=== PATIENT | female | born 1985 | race Caucasian/White ===

== ENCOUNTER 2016-07-24 09:11 | Outpatient (CLI) | payer OTHER | END 2016-07-24 09:12 | disposition home or self-care (01) | DX: Z36 Encounter for antenatal screening of mother (principal) ==

== ENCOUNTER 2016-08-16 13:27 | Outpatient (CLI) | payer OTHER | END 2016-08-16 13:28 | disposition home or self-care (01) | DX: O40.3XX0 Polyhydramnios, third trimester, not applicable or unspecified (principal) ==

== ENCOUNTER 2016-08-22 10:05 | Outpatient (CLI) | payer OTHER | END 2016-08-22 12:25 | disposition home or self-care (01) | DX: O24.419 Gestational diabetes mellitus in pregnancy, unspecified control (principal); Z3A.34 34 weeks gestation of pregnancy; O40.3XX0 Polyhydramnios, third trimester, not applicable or unspecified ==

== ENCOUNTER 2016-08-22 12:30 | Outpatient (CLI) | payer OTHER | END 2016-08-22 12:31 | disposition home or self-care (01) | DX: O40.3XX0 Polyhydramnios, third trimester, not applicable or unspecified (principal) ==

== ENCOUNTER 2016-08-30 20:08 | Outpatient (CLI) | payer OTHER | END 2016-08-30 20:09 | disposition home or self-care (01) | DX: Z36 Encounter for antenatal screening of mother (principal) ==

== ENCOUNTER 2016-08-31 14:10 | Outpatient (CLI) | payer OTHER ==
[2016-08-31 14:20] VITALS: BP 124/65
== END 2016-08-31 14:45 | disposition home or self-care (01) ==
LOC: WFO 14:10 → OB 14:12 → WFO 14:45
PROVIDERS: ATTEND Obstetrics & Gynecology
DX: O24.419 Gestational diabetes mellitus in pregnancy, unspecified control (principal); Z3A.35 35 weeks gestation of pregnancy; O40.3XX0 Polyhydramnios, third trimester, not applicable or unspecified
CPT/HCPCS: 59025

== ENCOUNTER 2016-09-11 11:45 | Outpatient (CLI) | payer OTHER ==
[2016-09-11 12:22] VITALS: BP 116/73
--- NOTE | 2016-09-11 16:56 | Ultrasound Report ---
BIOPHYSICAL PROFILE: 09/11/2016 CLINICAL INDICATION: Decreased movement. TECHNIQUE: Real-time scanning was performed with patient access representative static images obtained. FINDINGS: The fetus receives 2 points for tone, 2 points for movement, 2 points for feta l respiration, and 2 points for amniotic fluid, yielding a biophysical profile of 8 out of 8. heart rate is 132 BPM. Amniotic fluid volume has decreased, with an LYN of 26.1, within normal limits. IMPRESSION: SINGLE VIABLE INTRAUTERINE GESTATION; 8 OUT OF 8 BIOPHYSICAL PROFILE. JOB #: [id number] EXT JOB #:[id number]
== END 2016-09-11 14:40 | disposition home or self-care (01) ==
LOC: WFO 11:45 → OB 11:47 → WFO 14:40
PROVIDERS: ATTEND Obstetrics & Gynecology
DX: O36.8130 Decreased fetal movements, third trimester, not applicable or unspecified (principal); Z3A.37 37 weeks gestation of pregnancy
CPT/HCPCS: 59025; 76819

== ENCOUNTER 2016-09-14 12:17 | Outpatient (CLI) | payer OTHER ==
[2016-09-14 12:45] VITALS: BP 128/64
== END 2016-09-14 12:52 | disposition home or self-care (01) ==
LOC: WFO 12:17 → OB 12:19 → WFO 12:52
PROVIDERS: ATTEND Obstetrics & Gynecology
DX: O40.3XX0 Polyhydramnios, third trimester, not applicable or unspecified (principal); Z3A.37 37 weeks gestation of pregnancy
CPT/HCPCS: 59025

== ENCOUNTER 2016-09-17 15:47 | Outpatient (CLI) | payer OTHER | END 2016-09-17 15:48 | disposition critical access hospital (66) | LOC: EMS 15:47 | PROVIDERS: ATTEND Surgery | DX: O60.00 Preterm labor without delivery, unspecified trimester (principal) | CPT/HCPCS: A0425; A0429 ==

== ENCOUNTER 2016-09-17 16:23 | Inpatient (IN) | payer OTHER ==
[2016-09-17 16:48] LABS: BASOPHILS % (AUTO) 0.3 %; EOSINOPHILS # (AUTO) 0.1 10^3/uL (0.0-0.7); EOSINOPHILS % (AUTO) 1.2 %; HCT - HEMATOCRIT 30.9 % (37.0-47.0); HGB - HEMOGLOBIN 10.4 g/dL (12.0-16.0); LYMPHOCYTES # (AUTO) 2.1 10^3/uL (1.5-3.5); LYMPHOCYTES % (AUTO) 22.2 %; MEAN CORPUSCULAR HGB CONC 33.7 g/dL (32.0-36.0); MEAN CORPUSCULAR VOLUME 80.1 fL (81.0-99.0); MEAN PLATELET VOLUME 9.3 fL (7.9-10.8); MONOCYTES # (AUTO) 0.6 10^3/uL (0.0-1.0); MONOCYTES % (AUTO) 6.2 %; NEUTROPHILS # (AUTO) 6.6 10^3/uL (1.5-6.6); NEUTROPHILS % (AUTO) 70.1 %; RED BLOOD COUNT 3.85 10^6/uL (4.20-5.40); RED CELL DISTRIBUTION WIDTH 13.3 % (12.0-15.0); UNCORRECTED WHITE BLOOD COUNT 9.4 x10^3/uL; WHITE BLOOD COUNT 9.4 x10^3/uL (4.8-10.8)
[2016-09-17] MEDS ORDERED: LACTATED RINGERS 1,000 ML IV ONE (16:48)
[2016-09-17] MEDS ORDERED: ONDANSETRON 4 MG/2 ML VIAL IVP PRN (17:06)
[2016-09-17] MEDS ORDERED: fentaNYL 100 MCG/2 ML VIAL IVP PRN (17:06)
[2016-09-17] MEDS ORDERED: SODIUM CHLORIDE FLUSH 0.9% 10 ML SYRINGE IVP PRN (17:06)
[2016-09-17] MEDS ORDERED: ACETAMINOPHEN 325 MG TABLET PO SCH (18:00)
--- NOTE | 2016-09-17 20:02 | HISTORY & PHYSICAL EXAMINATION ---
DATE OF ADMISSION: 09/17/2016 DATE OF ADMISSION/SURGERY: 09/17/2016 IDENTIFICATION: This is a 31-year-old 4, para 3-0-0-3 with a 38-2/7 week intrauterine . EDC is 09/29/2016 consistent with a 13-week ultrasound. HISTORY OF PRESENT ILLNESS: This is a patient of [facility]. She was initially a transfer of care from [facility]. Her has been complicated with gestational diabetes mellitus as well as borderline polyhydramnios diagnosed at 32 weeks' gestation. The patient's sugars have been pretty much in control with fastings in the 70s and 80s, and postprandials to the 80s and 110s. The patient was diagnosed with polyhydramnios at about 33 weeks' gestation secondary to size greater than dates. A 08/16/2016 ultrasound showed the baby was measuring 2479 grams at the 55th percentile. LYN was 30.1 cm. Repeat ultrasound on 08/30/2016 showed that the LYN had decreased to 23.6 cm. More recently the patient stated that she had a spontaneous rupture of membranes at 1515 today. It was an obvious rupture of membranes. The patient presented here in the emergency department via an ambulance because she had a precipitous delivery in less than an hour with last child, Jaime, her son. The patient states that the baby is moving well. Denies any vaginal bleeding. She is having some spontaneous contractions approximately every 3-4 minutes. The heart rate currently is reactive and category 1 with the baseline in the 130s. There are no decelerations. The patient was scheduled for induction of labor at 39 weeks secondary to polyhydramnios as well as gestational diabetes mellitus. PAST MEDICAL HISTORY: 1. Obesity. 2. Quiescent multiple sclerosis. 3. Migraine headaches. 4. History of frequent urinary tract infections. PAST SURGICAL HISTORY: 1. [place] teeth extraction. 2. 2003 cryotherapy. ALLERGIES: NO KNOWN DRUG ALLERGIES. MEDICATIONS: vitamins. SOCIAL HISTORY: The patient is to Antonio and they have a son, Favian, daughter Xin, and son, Jaime. This is anticipated male fetus. Antonio is in the [place]. PAST GYNECOLOGIC HISTORY: Spontaneous cryotherapy in 2002. Pap smears have otherwise been within normal limits. FAMILY HISTORY: There is no female carcinoma. REVIEW OF SYSTEMS: Negative unless otherwise stated. OBJECTIVE: VITAL SIGNS: Temperature is 98.1, heart rate 75, blood pressure 112/52, respiratory rate 16. O2 saturation 100. GENERAL: The patient is a well-developed, well-nourished female in no apparent distress. She is alert and oriented x3. ABDOMEN: Gravid, nontender. Estimated weight is 8 to 8-1/2 pounds. LABORATORY DATA: labs reveal she is B positive, antibody negative, rubella immune, RPR nonreactive, HIV negative, CTGC negative. ASCUS Pap smear with positive high risk HPV virus. One hour GTT is 145. 08/22/2016 hemoglobin A1c was 5.0% and the glucose was 105. Estimated average glucose was 97. GBS is negative. Her cervical examination shows she is fingertip, thick and high, ballotable head. ASSESSMENT: 1. A 31-year-old 4, para 3-0-0-3 with a 38-2/7 week intrauterine . 2. Premature rupture of membranes. 3. Borderline polyhydramnios. PLAN: 1. Expect spontaneous vaginal delivery. 2. Pitocin if contractions peter off. 3. We will begin ampicillin for chorioamnionitis if ruptured at 18 hours. 4. Epidural should the patient need more pain control. 5. Anticipate shoulder dystocia given this a male fetus and that the patient has diet controlled gestational diabetes mellitus. JOB #: [id number] EXT JOB #:[id number] STEPHANIE
--- NOTE | 2016-09-17 20:29 | PROVIDER PROGRESS NOTE ---
Labor Progress Note - Instructions [place]/Slash: -Left hand click circles element as positive or present. -Right hand click slashes element as negative or not present. - Uterine Monitoring Uterine Monitoring Mode: positive: External toco Contraction Frequency (min/apart): Q2-3 (spontaneous) Contraction Intensity: positive: Moderate Uterine Resting Tone: positive: Soft - Monitoring Monitor Mode: positive: External ultrasound Heart Rate Baseline: 130-140's Heart Rate Variability: positive: Moderate (6-25 bmp) Accelerations: positive: Present, 15x15 Decelerations: positive: None Strip Review: positive: Category I - Vaginal Exam Dilation (in cm): Deferred - Labor Progress Note Labor Progress Note/Additional Text: 31 yo with a 38w2d IUP PROM Polyhydramnios Reassuring status Expect Labs, EKG, Meds, Allergy - Lab Results Fish Bones: 09/17/16 16:40 Other Lab Results: Lab Results x24hrs 09/17/16 Range/Units 16:40 WBC 9.4 (4.8-10.8) x10^3/uL RBC 3.85 L (4.20-5.40) 10^6/uL Hgb 10.4 L (12.0-16.0) g/dL Hct 30.9 L (37.0-47.0) % MCV 80.1 L (81.0-99.0) fL MCH 27.0 (27.0-31.0) pg MCHC 33.7 (32.0-36.0) g/dL RDW 13.3 (12.0-15.0) % Plt Count 143 (130-450) 10^3/uL MPV 9.3 (7.9-10.8) fL Neut # 6.6 (1.5-6.6) 10^3/uL Lymph # 2.1 (1.5-3.5) 10^3/uL Sherman # 0.6 (0.0-1.0) 10^3/uL Eos # 0.1 (0.0-0.7) 10^3/uL Baso # 0.0 (0.0-0.1) 10^3/uL Absolute Nucleated RBC 0.00 x10^3/uL Nucleated RBCs 0.0 /100WBC - Allergy Allergy: Allergies Allergy/AdvReac Type Severity Reaction Status Date / Time No Known Drug Allergies Allergy Verified 09/17/16 16:30
[2016-09-17] MEDS ORDERED: OXYTOCIN/LACTATED RINGERS 250 ML IV SCH (21:00)
[2016-09-17] MEDS ORDERED: SODIUM CHLORIDE FLUSH 0.9% 10 ML SYRINGE IVP SCH (22:00)
[2016-09-17] MEDS ORDERED: fent/BUPIV 2 MCG/0.125% 250 ML EP ONE (22:22)
[2016-09-17] MEDS: LACTATED RINGERS 1,000 ML IV SCH (22:25)
--- NOTE | 2016-09-17 23:43 | PROVIDER PROGRESS NOTE ---
Labor Progress Note - Instructions [place]/Slash: -Left hand click circles element as positive or present. -Right hand click slashes element as negative or not present. - Uterine Monitoring Uterine Monitoring Mode: positive: External toco Contraction Frequency (min/apart): Q2-5 min Contraction Intensity: positive: Mild to moderate Uterine Resting Tone: positive: Soft - Monitoring Monitor Mode: positive: External ultrasound Heart Rate Variability: positive: Moderate (6-25 bmp) Accelerations: positive: Present, 15x15 Decelerations: positive: None Strip Review: positive: Category I - Labor Progress Note Labor Progress Note/Additional Text: 31 yo with a 38w2d IUP. PROM since 15:15 09/17/2016. Received epidural by Be Berg CRNA, for pain control. Difficult placement. Most recent exam by RN revealed no change in cervix-- High, posterior, soft. Start pitocin. Expect . Watch for S/s chorioamnionitis.
[2016-09-18] MEDS: LACTATED RINGERS 1,000 ML IV SCH ×2 (00:20→03:30)
--- NOTE | 2016-09-18 00:37 | PROVIDER PROGRESS NOTE ---
Labor Progress Note - Instructions [place]/Slash: -Left hand click circles element as positive or present. -Right hand click slashes element as negative or not present. - Uterine Monitoring Uterine Monitoring Mode: positive: External toco Contraction Frequency (min/apart): Q2-3 min Contraction Intensity: positive: Mild to moderate Uterine Resting Tone: positive: Soft - Monitoring Monitor Mode: positive: External ultrasound Heart Rate Variability: positive: Moderate (6-25 bmp) Accelerations: positive: Present, 15x15 Decelerations: positive: None Strip Review: positive: Category I - Labor Progress Note Labor Progress Note/Additional Text: 31 yo with a 38w3d IUP PROM Epidural in place and working well Pitocin started, on 1 milliunit/ min. Will continue. No S/s chorioamnionitis Vertex presentation confirmed via bedside U/S Expect
--- NOTE | 2016-09-18 02:40 | PROVIDER PROGRESS NOTE ---
Labor Progress Note - Instructions Jack/Slash: -Left hand click circles element as positive or present. -Right hand click slashes element as negative or not present. - Uterine Monitoring Uterine Monitoring Mode: positive: External toco Contraction Frequency (min/apart): Q2-3 min : Pit 5 milliunits Contraction Intensity: positive: Moderate Uterine Resting Tone: positive: Soft - Monitoring Monitor Mode: positive: External ultrasound Heart Rate Baseline: 140s Heart Rate Variability: positive: Moderate (6-25 bmp) Accelerations: positive: Present, 15x15 Decelerations: positive: Variable Strip Review: positive: Category I - Vaginal Exam Dilation (in cm): 8 Effacement (%): 60 Station: positive: -3 Cervical Position: positive: Posterior - Labor Progress Note Labor Progress Note/Additional Text: 31 yo with a 38w3d IUP Active labor SROM at 15:15 09/17/2016 Continue pitocin Expect
[2016-09-18] MEDS: TERBUTALINE 1 MG/ML VIAL SUBQ ONE ×2 (03:19→03:47)
--- NOTE | 2016-09-18 03:41 | PROVIDER PROGRESS NOTE ---
Labor Progress Note - Instructions [place]/Slash: -Left hand click circles element as positive or present. -Right hand click slashes element as negative or not present. - Uterine Monitoring Uterine Monitoring Mode: positive: External toco Contraction Frequency (min/apart): >Q2-4 min Contraction Intensity: positive: Moderate Uterine Resting Tone: positive: Soft - Monitoring Monitor Mode: positive: External ultrasound Heart Rate Variability: positive: Moderate (6-25 bmp) Accelerations: positive: Present, 15x15 Decelerations: positive: Variable Strip Review: positive: Category II - Vaginal Exam Dilation (in cm): 8 Effacement (%): 60 Station: positive: -3 Cervical Position: positive: Posterior - Labor Progress Note Labor Progress Note/Additional Text: 31 yo with a 38w3d IUP Active labor, but no improvement with cervical exam Nonreassuring heart tones with deep variable decelerations to 40-50's. Pitocin stopped, patient rotated, O2 by mask given, terbutaline given. D/w the patient baby not tolerating labor nor is coming down in the pelvis. Suspect nuchal/ bandalero cord. FHT's improved with good LTV and improved variable decels after terbutaline. D/W the patient the risks, benefits, alternatives, indications and expectations of a primary CD. All questions answered to the patient's satisfaction. Patient verbalizes her desire to proceed to a delivery. Will have the patient sign consents and will proceed. Anesthesia and peds called.
[2016-09-18] MEDS ORDERED: LACTATED RINGERS 1,000 ML IV ONE ×3 (03:57→05:31)
[2016-09-18] MEDS ORDERED: ROCURONIUM 50 MG/5 ML VIAL IVP ONE (04:30)
[2016-09-18] MEDS ORDERED: SUCCINYLCHOLINE 200 MG/10 ML VIAL IVP ONE (04:30)
[2016-09-18] MEDS ORDERED: LIDOCAINE-MPF 2% 5 ML VIAL IM ONE (04:30)
[2016-09-18] MEDS ORDERED: fentaNYL 100 MCG/2 ML VIAL IVP ONE (04:30)
[2016-09-18] MEDS ORDERED: PROPOFOL 200 MG/20 ML VIAL IVP ONE (04:30)
[2016-09-18] MEDS ORDERED: ceFAZolin 1 GM VIAL IV ONE (04:30)
--- NOTE | 2016-09-18 05:58 | OPERATIVE REPORT ---
Operative Report - General Admit Date: 09/17/16 - Other Other Information/Narrative: Date of operation: 09/18/2016 Surgeon: Jerica Villasenor DO FACOG Behavioral Health Clinician: [facility] Foreign Service Teacher: Be Berg CRNA Anesthesia: GET Pre-op Dx: 1. 31 yo with a 38w3d IUP 2. Active labor 3. NRFHT 4. Polyhydramnios 5. Diet controlled DM 6. Desired permanent sterilization Post-op Dx: 1. 31 yo with a 38w3d IUP 2. Active labor 3. NRFHT 4. Polyhydramnios 5. Diet controlled DM 6. Desired permanent sterilization Procedure: 1. Primary delivery 2. Bilateral salpingectomy Findings: 1. Viable male fetus named Yumiko. Apgars 9/9, weight 6 lbs 11.4 oz or 3047 gm. VTX. 2. Nuchal cord x 1, reduced. Also cord around lower leg. 3. Normal uterus, fallopian tubes and ovaries Specimens: 1. Cord blood 2. Cord gases 3. Placenta 4. Bilateral fallopian tubes EBL: 700 mL Drains: 1. Otto to gravity 2. Prevena wound vac Complications: None
--- NOTE | 2016-09-18 06:02 | XRAY Preliminary Report ---
Exam: XR Abdomen 1 View IMPRESSION: No suspicious radiopaque foreign object. RADIA The critical result notification system was initiated by Dr. Ellen Aguilar at 05:58 hrs on 09/18/16. The above critical findings were discussed with Dr. Villasenor by Dr. Ellen Aguilar at 06:01 hrs on 09/18/16 . SITE ID: [id number]
--- NOTE | 2016-09-18 06:05 | XRAY Report ---
EXAM: ABDOMEN RADIOGRAPHY EXAM DATE: 09/18/2016 05:20 AM. CLINICAL HISTORY: POST C SECTION . COMPARISON: None. TECHNIQUE: 1 view. FINDINGS: Bowel Gas Pattern: Within normal limits. No dilated loops. Other: Multiple tubes and lines project over the abdomen. Soft tissue gas projects over the central a bdomen. IMPRESSION: No suspicious radiopaque foreign object. RADIA The critical result notification system was initiated by Dr. Ellen Aguilar at 05:58 hrs on 09/18/16. The above critical findings were discussed with Dr. Villasenor by Dr. Ellen Aguilar at 06:01 hrs on 09/18/16 . Referring Provider Line: [phone] SITE ID: [id number]
[2016-09-18] MEDS ORDERED: WITCH HAZEL/GLYCERIN 1 EACH MED..PAD TOP PRN (06:12)
[2016-09-18] MEDS ORDERED: OXYTOCIN/LACTATED RINGERS 250 ML IV ONE (06:15)
--- NOTE | 2016-09-18 07:00 | OPERATIVE REPORT ---
DATE OF SURGERY: 09/18/2016 00:00:00 PREOPERATIVE DIAGNOSES 1. A 31-year-old G4, P3-0-0-3 with a 38-3/7-week intrauterine . 2. Active labor. 3. Nonreassuring heart tones. 4. Polyhydramnios. 5. Diet-controlled diabetes mellitus. 6. Desired permanent sterilization. POSTOPERATIVE DIAGNOSES 1. A 31-year-old G4, P3-0-0-3 with a 38-3/7-week intrauterine . 2. Active labor. 3. Nonreassuring heart tones. 4. Polyhydramnios. 5. Diet-controlled diabetes mellitus. 6. Desired permanent sterilization. NAME OF PROCEDURES 1. Primary delivery. 2. Bilateral salpingectomy. SURGEON: Jerica Villasenor DO STRIP WINDER: EDGAR Morales METAL HANDLER: Be Berg CRNA ANESTHESIA: General endotracheal tube. FINDINGS 1. A viable male fetus in vertex presentation named Yumiko. Apgars 9 and 9 at 1 and 5 minutes, respectively. Weight is 6 pounds 11.4 ounces or 3047 grams. 2. Nuchal cord x1, reduced. 3. Umbilical cord also noted to be wrapped around the right lower leg. 4. Normal uterus, fallopian tubes, and ovaries. SPECIMENS 1. Umbilical cord blood. 2. Umbilical cord gases. 3. Placenta. 4. Bilateral fallopian tubes. ESTIMATED BLOOD LOSS: 700 mL. DRAINS 1. Otto catheter to gravity. 2. Prevena wound VAC. COMPLICATIONS: None. BRIEF HISTORY: This is a patient of [facility] who presented with complaints of loss of fluid. The patient had been diagnosed with polyhydramnios at about 33 weeks' gestation after measuring size greater than dates. In any event, she noted gross loss of fluid. She was found to be ruptured. Her cervix was remote from delivery. She was allowed to contract on her own, and eventually they were too strong to tolerate. She received an epidural and then had Pitocin for augmentation of labor. She eventually progressed to 8 cm dilation, 60% effacement, but -3 station. Also at that time, the fetus began to show signs of nonreassuring heart tones as there were deep variables at worst down to the 40s. After maneuvers to resuscitate the baby were performed, specifically, by shutting off the Pitocin, rotating the patient, giving O2 by mask and giving subcutaneous terbutaline, the variables improved but persisted. I recommended she undergo a delivery due to nonreassuring heart tones. I discussed the risks, benefits , alternatives, indications and expectations of surgery including, but not limited to inadvertent liver laceration, cauterization or ligation of the adjacent intestines and bladder. The patient and her Brandon also verbalized their desire to proceed to a permanent sterilization. They had discussed earlier this their desire for permanent sterilization. Their consent was signed on 08/07/2016. They reconfirmed their desire to still proceed to permanent sterilization. Consent forms were signed after all their questions were answered to their satisfaction. They decided to proceed to a delivery and a bilateral salpingectomy. OPERATION IN DETAIL: The patient was identified, consented, and taken to the operating room with IV, Otto and epidural access already in place. Given the concern of tracing, normal protocols were not followed in order to get the baby out quickly. The patient was transferred to the operating room table where she was given satisfactory general endotracheal tube anesthesia. A timeout was performed, which correctly identified the patient, site of the procedure, and the procedures themselves. Again, due to the concern of the well-being, we did not have time to adequately count all instruments and sequential compression devices were not placed on her lower extremities. A Pfannenstiel skin incision was made approximately 2 fingerbreadths above the level of the pubic symphysis. This was then carried to the underlying layer of fascia with electrocautery. Fascia was then nicked in the midline and then extended laterally. The rectus muscles were then bluntly in the midline. Peritoneum was entered bluntly as well. Bladder blade was inserted and a hysterotomy was made in the lower uterine segment. With the help of fundal pressure, the was delivered out the abdomen. Again, with the help of fundal pressure, the rest of the delivered through the hysterotomy. The baby did give a small cry upon delivery. The umbilical cord was doubly clamped and cut and then handed off to Dr. Annika Arce, the on-call dispatcher radio. Cord blood and gases were then obtained and sent off. The uterus was then internally massaged and placenta delivered manually. Uterus was then delivered out the abdomen and cleared of all clots and debris. The hysterotomy was repaired with 3 stitches of 0 Vicryl, the first 2 in a running locked fashion and then in an imbricating fashion using a Lembert stitch. Attention was then turned towards the bilateral salpingectomy for sterilization. The left fallopian tube was identified and followed to its fimbriated end. Incisions were made in the mesosalpinx using electrocautery. Care was made not to make incisions into the major venous vasculature including the middle salpingeal artery and the ovarian arteries leading to the fallopian tubes. Next, with 3-0 Vicryl suture, the main vasculature was suture ligated. This was also similarly done to the proximal portion of the fallopian tube. The fallopian tube was then excised and handed off. In a similar fashion, the right fallopian tube was excised. Hemostasis was noted. Inspection of the uterus found it to be hemostatically stable. The uterus was then returned to the abdomen and the abdomen was then copiously irrigated. Hemostasis was noted. The peritoneum was closed with a single stitch of 2-0 Vicryl in a running fashion. The same stitch was used to reapproximate the rectus muscles. Fascia was then closed with 0 Vicryl in a running fashion. Subcuticular tissue was then reapproximated with single interrupted stitches of 0 Vicryl. The skin was then finally closed with 4-0 Monocryl in subcuticular fashion and a Prevena wound VAC was placed on top of the incision. Radiology came down and did 2 x-rays of the abdomen and pelvis. The ultrasound pictures, as well as a verbal report from radiology, revealed that there were no retained instruments. The patient was then taken back to recovery room in stable condition. I spoke to her , Brandon, on what had happened in the OR in that she had to undergo general anesthesia in order to quickly deliver the baby. The patient was doing well and there were no complications. The patient will be taken to Labor and Delivery for the rest of her hospital stay. She will be given routine care including [id number] Celebrex, ibuprofen and p.r.n. oxycodone. JOB #: [id number] EXT JOB #:[id number] STEPHANIE
[2016-09-18] MEDS ORDERED: AMPICILLIN 2 GM in SODIUM CHLORIDE 0.9% MINIBAG 100 ML IV SCH (07:15)
[2016-09-18] MEDS: ACETAMINOPHEN 500 MG TABLET PO SCH ×3 (08:52→23:09)
[2016-09-18] MEDS: CELECOXIB 100 MG CAPSULE PO SCH ×2 (08:53→21:16)
[2016-09-18] MEDS: DOCUSATE SODIUM 100 MG CAPSULE PO SCH ×2 (08:54→21:18)
[2016-09-18] MEDS: oxyCODONE 5 MG TABLET PO SCH ×4 (08:54→21:17)
--- NOTE | 2016-09-18 10:20 | PROVIDER PROGRESS NOTE ---
Subjective - Prog Note Date Prog Note Date: 09/18/16 Prog Note Time: 10:14 - Subjective Pt reports feeling: No change Subjective: Patient sleeping deeply. sitting in his chair beside Funmilayo holding baby Yumiko. Objective - Vital Signs/Intake & Output Vital Signs: Vital Signs x48h Temp Pulse Resp BP Pulse Ox 09/18/16 09:00 98.0 F 68 16 112/51 L 98 09/18/16 07:00 75 20 136/47 H 100 09/18/16 06:20 97.9 F 69 18 123/53 L 100 09/18/16 06:10 99 09/18/16 06:00 100 09/18/16 05:55 100 09/18/16 05:50 100 09/18/16 05:45 100 09/18/16 05:40 100 09/18/16 05:35 100 09/18/16 05:31 100 Intake & Output: Intake & Output 09/15/16 09/16/16 09/17/16 09/18/16 23:59 23:59 23:59 23:59 Intake Total 1250 3028 Output Total 1955 Balance 1250 1073 - Lab Results Fish Bones: 09/17/16 16:40 Other Labs: Lab Results x24hrs 09/17/16 Range/Units 16:40 WBC 9.4 (4.8-10.8) x10^3/uL RBC 3.85 L (4.20-5.40) 10^6/uL Hgb 10.4 L (12.0-16.0) g/dL Hct 30.9 L (37.0-47.0) % MCV 80.1 L (81.0-99.0) fL MCH 27.0 (27.0-31.0) pg MCHC 33.7 (32.0-36.0) g/dL RDW 13.3 (12.0-15.0) % Plt Count 143 (130-450) 10^3/uL MPV 9.3 (7.9-10.8) fL Neut # 6.6 (1.5-6.6) 10^3/uL Lymph # 2.1 (1.5-3.5) 10^3/uL Barron # 0.6 (0.0-1.0) 10^3/uL Eos # 0.1 (0.0-0.7) 10^3/uL Baso # 0.0 (0.0-0.1) 10^3/uL Absolute Nucleated RBC 0.00 x10^3/uL Nucleated RBCs 0.0 /100WBC Assessment/Plan - Problem List (1) delivery delivered Impression: 31 yo S/p primary CD and BS 09/18/2016 Normal recovery Although patient sound asleep, spoke with Brandon and explained to him the baby's monitoring strip and my concerns for a healthy baby and mom. These concerns of deep recurrent variables lead me to my recommendation of a delivery due to nonreassuring heart tones. Showed Brandon the strip and explained my thought process. Brandon satisfied with the conversation and all of this questions were answered. Brandon was happy with his and baby's care. Will return later today after Funmilayo has slept to review with her the events of her labor leading up to an emergent delivery. Will continue aggressive pain control with routine Celebrex, tylenol and oxycodone. Routine care. Anticipate discharge to home either 09/20/2016 or Saturday09/21/2016.
[2016-09-18] MEDS: SIMETHICONE CHEW 80 MG TABLET PO SCH (15:04)
--- NOTE | 2016-09-18 20:51 | PROVIDER PROGRESS NOTE ---
Subjective - Prog Note Date Prog Note Date: 09/18/16 Prog Note Time: 20:48 - Subjective Pt reports feeling: Improved Subjective: Patient in bed, breast feeding baby but he keeps falling asleep. Has been supplementing the baby with formula since she is not producing milk yet. Throat feeling a little dry when she talks too much. IVF stopped and has saline lock. Harris in-situ. States that she is prone to UTI, especially with her MS. Worried that she will get UTI given she has a harris. Current Medications - Current Medications Current Medications: Routine Celebrex, tylenol and oxycodone. Objective - Vital Signs/Intake & Output Reviewed Vital Signs: Yes Vital Signs: Vital Signs x48h Temp Pulse Resp BP Pulse Ox 09/18/16 19:00 79 18 104/46 L 100 09/18/16 15:45 98.3 F 78 16 111/51 L 98 Intake & Output: Intake & Output 09/15/16 09/16/16 09/17/16 09/18/16 23:59 23:59 23:59 23:59 Intake Total 1250 4845 Output Total 4055 Balance 1250 790 - Objective General Appearance: positive: No acute distress - Lab Results Fish Bones: 09/17/16 16:40 Assessment/Plan - Problem List (1) delivery delivered Impression: 31 yo S/p CD + BS 09/18/2016 Normal recovery. Routine care. H/O frequent UTI. Will start amoxicillin for UTI prophylaxis. D/w the patient her labor. Showed the patient the strip. Explained how the significant variable decelerations and high station resulted in my recommendation for a delivery. The patient and her also requested a permanent sterilization. Patient understood the conversation and was satisfied with my explanation. Patient tired and likely will have the nurses watch baby Yumiko. Brandon has taken the kids home and will stay with them until tomorrow.
[2016-09-19] MEDS: AMOXICILLIN 250 MG CAPSULE PO SCH ×3 (00:05→20:28)
[2016-09-19] MEDS: oxyCODONE 5 MG TABLET PO SCH ×4 (04:34→17:45)
[2016-09-19] MEDS: SIMETHICONE CHEW 80 MG TABLET PO SCH ×3 (04:54→14:14)
[2016-09-19] MEDS: ACETAMINOPHEN 500 MG TABLET PO SCH ×2 (07:18→14:21)
[2016-09-19] MEDS: DOCUSATE SODIUM 100 MG CAPSULE PO SCH ×2 (09:00→20:28)
[2016-09-19] MEDS: CELECOXIB 100 MG CAPSULE PO SCH ×2 (09:00→20:28)
--- NOTE | 2016-09-19 10:53 | PROVIDER PROGRESS NOTE ---
Subjective - Prog Note Date Prog Note Date: 09/19/16 Prog Note Time: 10:51 - Subjective Pt reports feeling: Improved Subjective: Patient sitting in bed holding the baby. and younger son at bedside. Feeling better, especially since she got sleep. Scant lochia, only when wiping. Ambulating and urinating well. Pain controlled with po meds. Baby getting better at latching but still not great. Having to supplement with formula still. With daughter, she only breast feed on one side; Funmilayo had to pump the other breast. This baby seems to be doing the same. Funmilayo expressing her desire to go home tomorrow, assuming the baby latches better. Objective - Vital Signs/Intake & Output Reviewed Vital Signs: Yes Vital Signs: Vital Signs x48h Temp Pulse Resp BP BP Pulse Ox 09/19/16 07:40 98.8 F 81 16 107/56 L 99 09/19/16 04:47 97.9 F 87 20 124/62 99 Intake & Output: Intake & Output 09/16/16 09/17/16 09/18/16 09/19/16 23:59 23:59 23:59 23:59 Intake Total 1250 5145 500 Output Total 4585 1400 Balance 1250 560 -900 - Objective General Appearance: positive: No acute distress Eyes Bilateral: positive: Normal inspection (Wears glasses) Abdomen: positive: Non-tender (Prevena wound vac in place and working well) Neurologic/Psychiatric: positive: Oriented x3 - Lab Results Fish Bones: 09/17/16 16:40 Assessment/Plan - Problem List (1) delivery delivered Impression: 31 yo S/p delivery and bilateral salpingectomy 09/18/2016 for NRFHT's and desired permanent sterilization Normal recovery Routine care Anticipate home tomorrow. Home Rx written for ibuprofen, oxycodone, tylenol and colace Patient to return 09/22/2016 on L&D to remove wound vac Return to [facility] in 2 weeks for an incision check Call for worsening fevers, chills, abdominal pain or vaginal bleeding
[2016-09-20] MEDS: oxyCODONE 5 MG TABLET PO SCH ×3 (04:22→12:31)
[2016-09-20] MEDS: ACETAMINOPHEN 500 MG TABLET PO SCH ×2 (04:24→12:30)
[2016-09-20] MEDS: SIMETHICONE CHEW 80 MG TABLET PO SCH ×2 (08:19→12:30)
[2016-09-20] MEDS: DOCUSATE SODIUM 100 MG CAPSULE PO SCH (08:19)
[2016-09-20] MEDS: CELECOXIB 100 MG CAPSULE PO SCH (08:19)
[2016-09-20] MEDS: AMOXICILLIN 250 MG CAPSULE PO SCH (08:19)
--- NOTE | 2016-09-20 08:36 | PROVIDER PROGRESS NOTE ---
Subjective - Prog Note Date Prog Note Date: 09/20/16 Prog Note Time: 08:32 - Subjective Pt reports feeling: Improved Subjective: Patient sitting in bed. Dr. Mahan doing exam on the baby. Feeling better. Baby had a 2 hour nap. Baby also feeding better with nipple shield. Still desires to go home. Pain worse, but from sleeping and not taking meds on time. Objective - Vital Signs/Intake & Output Vital Signs: Vital Signs x48h Temp Pulse Resp BP BP Pulse Ox 09/20/16 08:02 97.2 F L 66 19 106/55 L 99 09/20/16 04:25 98.8 F 82 16 114/64 09/20/16 00:59 97.0 F L 75 16 106/47 L 97 Intake & Output: Intake & Output 09/17/16 09/18/16 09/19/16 09/20/16 23:59 23:59 23:59 23:59 Intake Total 1250 5145 500 Output Total 4585 1400 Balance 1250 560 -900 - Objective General Appearance: positive: No acute distress Abdomen: positive: Non-tender (Prevena wound vac intact and working well) - Lab Results Fish Bones: 09/17/16 16:40 Assessment/Plan - Problem List (1) delivery delivered Impression: 1. 31 yo S/p 09/18/2016 prior and bilateral sterilization 2. Normal recovery 3. Discharge to home A. Rx for oxycodone, ibuprofen, Tylenol and colace B. Return to L&D in 2 days to remove Prevena wound vac C. Follow up with [facility] in 2 weeks for a routine post-op check 4. Call for worsening fevers, chills, abdominal pain or vaginal bleeding.
--- NOTE | 2016-09-20 08:38 | Discharge Plan ---
Discharge Plan Disposition: 01 Home, Self Care Condition: Good Diet: Regular Activity Restrictions: Activity as Tolerated Shower Restrictions: No Driving Restrictions: Yes (Do not drive while taking oxycodone) Weight Bearing: Full Weight No Smoking: If you smoke, Please STOP! Call for help.
[2016-09-20 12:38] VITALS: BP 110/59
--- NOTE | 2016-09-20 16:43 | Labor Flowsheet ---
Labor Flowsheet Datetime Report Generated by CPN: 09/20/2016 16:42 Datetime: 09/20/2016 11:58 VITAL SIGNS NBP Sys/Lorelei/Mean (mmHg): 110 : 59 : 70 Pulse: 78 Datetime: 09/20/2016 11:57 Temperature (F): 97.5 Temperature (C): 36.4 Temperature (C): 36.4 Datetime: 09/18/2016 15:40 SpO2 (%): 98 Datetime: 09/18/2016 03:52 PATIENT CARE IV/Blood Work: IV Bolus Started (Annotations: IV bolus continues) Patient Position/Activity: Left Extreme I/O Interventions: NPO Consults: Anesthesia Patient Care Comments: To OR for emergent C/S for intolerance of labor; ASSOCIATE CREATIVE DIRECTOR Berg at BS d osing epidural. LaborFlag: Labor Datetime: 09/18/2016 03:50 UTERINE ACTIVITY Monitor Mode: External ASSESSMENT A Monitor Mode: Internal Scalp Electrode FHR Baseline Rate : 125 FHR Baseline Changes: Return to Previous Baseline Variability: Moderate 6-25 bpm Accelerations: None Decelerations: Late Actions for Decelerations: Oxygen Applied; IV Bolus Category: Category II Datetime: 09/18/2016 03:43 Tocolytics: Terbutaline 0.25mg Subcutaneous Datetime: 09/18/2016 03:31 Respirations: 24 Datetime: 09/18/2016 03:30 Stage of : Labor Provider Reviewed Strip: Yes TEACHING Instructional Method: Demo; Written; Patient Instructed; Family/Support Person Instructed; Verbaliz ed Understanding Plan of Care: Plan of Care Discussed; C/S Delivery Labor/Induction: Interventions COMMUNICATION Communication: Provider at Bedside Provider Notified (Name): Jacklyn Notification Reason: Status Update; Other Communication Comments: Pt gives verbal _ written consent for emergent c/s with planned BTL Datetime: 09/18/2016 03:25 Monitor Interventions for UA: [place] Adjusted Frequency (min): 4 Quality: Mild Duration (sec): 30 Pattern: Normal: <= 5 Contractions in 10 Minutes Resting Tone (Palpate): Relaxed Intensity IUP (mmHg): mod MEDICATIONS Pitocin (milliunits): Discontinued Datetime: 09/18/2016 03:18 Medication Comments: L arm Datetime: 09/18/2016 03:10 Monitor Interventions for FHR: FSE Applied Oxygen Method: Non-Rebreather Datetime: 09/18/2016 03:00 Comments: Bolus, O2, repositioning continues; Dr Villasenor at , SVE done, no cord palpated per OB PAIN Pain Scale: 5 (Annotations: 5/10 R side only; painful SVE ) Pain Presence: Intermittent Pain Type: Contraction; Pressure Pain Location: Abdomen; Right Groin Pain Goal: 5 Pain Relief Measures: Epidural Given Pain Coping: Breathing Through Contractions; Sleeping Anesthesia Level Check: T10- Umbilicus Datetime: 09/18/2016 02:45 Pitocin Checklist: At Least 1 Acceleration of 15 bpm x 15 Seconds in 30 Minutes or Adequate Variabi lity; No More than 1 Late Deceleration Occurred in Past 30 Minutes; No More than 5 Uterine Contractio ns in 10 Minutes for any 20 Minute Interval; Uterus Palpates Soft between Contractions (Annotations: Variables more frequent but not yet repetitive) Datetime: 09/18/2016 02:34 VAGINAL EXAM Dilatation (cm): 8.0 Effacement (%): 60 Station: -3 Exam by: Dr Villasenor Amniotic Fluid Color: Clear Amniotic Fluid Amount: Small Amniotic Fluid Odor: Normal Vaginal Bleeding: Normal Show Datetime: 09/18/2016 00:32 Procedures: Bedside Ultrasound Done Datetime: 09/17/2016 23:30 Unit Routine: IV Pumps; Safety/Fall Risk Prevention; Medications Medications: Pitocin Datetime: 09/17/2016 22:57 Epidural Procedure: Test Dose Datetime: 09/17/2016 22:32 PROCEDURE TIME OUT Procedure Type: epidural Datetime: 09/17/2016 22:30 Pain Management: Epidural Datetime: 09/17/2016 22:27 Procedure Verify: Correct Patient Identity; Accurate Procedure Consent Form; Agreement on Procedure to be Done; Addressed Need to Administer Antibiotics or Fluids for Irrigation; Safety Precautions Ba sed on Patient History or Medication Use ANESTHESIA Anesthesia Plans: Epidural Epidural Positioning: Sitting Datetime: 09/17/2016 22:00 Comfort Measures: Breathing/Relaxation; Coaching; Family Support Datetime: 09/17/2016 20:58 Cervix, Consistency: Soft Cervix, Position: Posterior Datetime: 09/17/2016 19:36 MATERNAL ASSESSMENT Level of Consciousness: Fully Conscious DTR's/Clonus: DTRs 2+; No Clonus Headache: Denies Breath Sounds, Left: Clear and Equal Breath Sounds, Right: Clear and Equal Nausea/Vomiting: Denies RUQ Epigastric Pain: Denies Datetime: 09/17/2016 19:00 Membrane Status: Ruptured
--- NOTE | 2016-09-21 06:30 | DISCHARGE SUMMARY ---
DATE OF ADMISSION: 09/17/2016 DATE OF DISCHARGE: 09/20/2016 DIAGNOSES ON ADMISSION 1. A 31-year-old 4, para 3-0-0-3 with a 30-2/7-week intrauterine . 2. Spontaneous rupture of membranes. 3. Polyhydramnios. 4. Diet-controlled gestational diabetes mellitus. DIAGNOSES ON DISCHARGE 1. A 31-year-old 4, para 4-0-0-4 status post delivery and bilateral salpingectomy on 09/18/2016 secondary to nonreassuring heart tones and desired permanent sterilization. 2. Normal recovery. BRIEF HISTORY: This is a patient of [facility] who presented on 09/17/2016 with comp laints of spontaneous rupture of membranes. The patient did have gross rupture of membranes, and her initial cervical exam by the RN showed she was fingertip thick, high with a ballottable head. T he patient was admitted to the hospital and was eventually given an epidural for pain control. Her co ntractions did slow down, so she was given oxytocin for induction of labor. At approximately 8 cm dil ation, the patient still did not show any significant descent, given that the baby was still -3 station. More importantly, the patient started showing signs of nonreassuring heart tone statu s with deep variable decelerations that worsened to the 40s. Given the nonreassuring heart stat us, as well as a high station, I recommended her to undergo a delivery. She also voice d her desire to have permanent sterilization. She underwent an emergency delivery on 017. Given the strip, she had to go under general anesthesia. She delivered a viable male infan t named Yumiko with Apgars of 9 and 9 at 1 and 5 minutes, respectively. He weighed 6 pounds 11.4 ounc es or 3047 grams. There was a nuchal cord x1 that was reduced and a cord around the baby's right lowe r leg. The patient underwent a bilateral salpingectomy for permanent sterilization as well. There were no co mplications. The patient did receive a wound vac at the completion of surgery. Cord gases were also o btained, which showed her arterial pH of 7.361, pCO2 of 35.1, pO2 35.2, bicarbonate 19.4, and base ex cess of -5.2. Contrasted to this, her venous pH was 7.3, pCO2 was 46.8, pO2 14.0, bicarb 22.5, and a base excess was -4.1. Her postoperative course has been unremarkable. She is ambulating and tolerating a regular diet. She is urinating without difficulty, and her pain is controlled with oral medications. She was concerned about a having urinary tract infection since she is very susceptible to them secondary to her multipl e sclerosis. The patient was started on antibiotics for UTI prophylaxis. The patient will be discharg ed to home on postoperative day #2, 09/20/2016. The patient will be given prescriptions for oxycodone , ibuprofen, Tylenol, and Colace. We will have her come back to [facility] on 09/13 for removal of her Prevena wound VAC. After that, she is to see us in 2 weeks for a routine in cision check at [facility]. The patient will be given instructions to call should e have any worsening fevers, chills, abdominal pain or vaginal bleeding. JOB #: [id number] EXT JOB #:[id number]
== END 2016-09-20 16:40 | disposition home or self-care (01) | DRG 765 ==
LOC: WFO 16:23 → OB 16:25 → WFO 17:05 → OB 17:06
PROVIDERS: ADMIT Obstetrics & Gynecology; ATTEND Obstetrics & Gynecology
PROC: 0UB70ZZ Excision of Bilateral Fallopian Tubes, Open Approach (ICD-10-PCS; 2016-09-18)
PROC: 10D00Z1 Extraction of Products of Conception, Low, Open Approach (ICD-10-PCS; principal; 2016-09-18 03:57)
DX: O42.02 Full-term premature rupture of membranes, onset of labor within 24 hours of rupture (principal); O99.354 Diseases of the nervous system complicating childbirth; O24.420 Gestational diabetes mellitus in childbirth, diet controlled; O40.3XX0 Polyhydramnios, third trimester, not applicable or unspecified; O76 Abnormality in fetal heart rate and rhythm complicating labor and delivery; O69.2XX0 Labor and delivery complicated by other cord entanglement, with compression, not applicable or unspecified; G35 Multiple sclerosis; Z87.440 Personal history of urinary (tract) infections; Z30.2 Encounter for sterilization; Z3A.38 38 weeks gestation of pregnancy; Z37.0 Single live birth
CPT/HCPCS: 36415; 74000; 85025; 88302; 88307; 99212

== ENCOUNTER 2016-10-02 15:46 | Outpatient (CLI) | payer OTHER | END 2016-10-02 15:47 | disposition home or self-care (01) | LOC: LAB.R 15:46 | PROVIDERS: ATTEND Obstetrics & Gynecology | DX: R30.0 Dysuria (principal) | CPT/HCPCS: 87086 ==